=== PATIENT | male | born 1955 ===

== ENCOUNTER → 2017-10-18 | Day surgery (SDC) | payer OTHER ==
[2017-10-18] VITALS (7 sets, daily range): BP systolic 107–135; BP diastolic 75–91
[~2017-10-18] VITALS: Ht 175.3 cm; Wt 88.5 kg
[~2017-10-18] MED LIST: ASPI81TA94 PO; CELECOXIB 200 MG CAP PO ONE; FOLI0.4T56 PO; GLUC100026 PO; KRIL500C2 PO; LIDOCAINE MPF 1% 5 ML VIAL ONE; LIDOCAINE/SOD BICARB 8.4% SYR ID ONE; MIDAZOLAM 2 MG/2 ML VIAL IVP PRN; NAPR220C12 PO; NORMOSOL R SOLN(*) 1000 ML BAG 1,000 ML IV PRN; OMEP-218 PO; PNEU0.5D3 IM; PROPOFOL EMUL(*) 10MG/ML 20 ML 40 ML ONE; [UNRECOGNIZED DRUG - OTHER]
== END ==
LOC: OR 03:32
PROVIDERS: ATTEND Internal Medicine
DX: Z12.11 Encounter for screening for malignant neoplasm of colon (principal)
CPT/HCPCS: 00812; 45378; J2001; J2704